=== PATIENT | male | born 1990 | race Caucasian/White ===

== ENCOUNTER 2022-04-26 10:10 | Outpatient (CLI) | payer OTHER ==
[2022-04-26 10:48] VITALS: BP 122/80
--- NOTE | 2022-04-26 10:48 | SLEEP CARE CONSULTATION ---
Information from patient questionnaire entered by Dhruv Mccarty. I have reviewed and concur with the information entered by Dhruv Mccarty. This document represents the service I personally performed and the decisions made by me, Rima Stewart ARNP. History of Present Illness Service Date and Time: 04/26/2022 1010 Reason for Visit: New patient Chief Complaint: reports: Unrefreshed sleep, Snoring, Observed pauses in breathing, Fatigue Date of Onset: several years Usual bedtime: 10-11pm Time it takes to fall asleep: 20-30min Snores at night: Yes Observed to quit breathing while asleep: Yes Sleeps alone due to snoring: Yes Number of times waking at night: 2 Reasons for waking at night: reports: Snoring, Gasping for air, Bathroom, Other (unknown) Toss, Turn, or Twitch while sleeping: Yes Recalls having dreams: No (not typically) Usually gets out of bed at: 745am Feels refreshed in the morning: No Morning headache: No Sleepy or fatigued during the day: Yes Ever fallen asleep while driving: No Takes day naps: Yes (1 times a week for about 1-2 hours) Dreams during day naps: No Prior sleep studies: No Additional HPI information: I had the pleasure of seeing SYMONE TINOCO today regarding the possibility of him having a sleep disorder. His current complaints are unrefreshed sleep, snoring, observed pauses in breathing and fatigue. He states he snores a lot according to his partner. His partner has also noted that he stops breathing in his sleep. 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 Patient is Single and lives in . Have you smoked in the past 12 months: No Cigarettes per day (20/pack): 3 Years of smokin Quit date: 5years ago Smoking Pack Years: 0.1 Alcohol use: Yes Alcohol amount and frequency: 2-3 drinks per month Caffeine use: Yes Caffeine amount and frequency: 3 cups coffee daily Family History Family history of sleep disordered breathing: Yes Family Hx Sleep Apnea: Father: Snoring, Sleep apnea - Untreated Allergies and Home Medications Known drug allergies: No Drug allergies reviewed: Yes (NKDA) Home medication list reviewed: Yes Allergy and home medication list: Medications: Lexapro 10 mg daily Review of Systems Weight gain over past 5 years: 50 Gastrointestinal: reports: heartburn (couple time a week) Neurological: reports: headaches (2-3 times a month). denies: head trauma Psychiatric: reports: anxiety Ear/Nose/Throat: reports: tonsillectomy, other (deviated septum) Immunologic: reports: sneezing, allergies to food or environment (seasonal) Physical Exam Vital signs obtained and entered by: DHRUV Lainez MA Blood Pressure: 122/80 (Left arm) Cuff size: long Heart Rate: 99 O2 Saturation: 97 Height: 5 ft 11 in Weight: 291 lb 6.4 oz Body Mass Index: 40.6 BMI Classification: Morbidly Obese Neck circumference: 18.75 (inches) Mouth and throat: narrow oropharynx Soft palate: long Hard palate: normal Uvula: normal Uvula visualization: 25% Mallampati Class III Tongue: enlarged in size with teeth bonilla on lateral edges Tonsils: absent bilaterally Neck: normal w/o lymphadenopathy or thyromegaly Heart: regular rate and rhythm Lungs: clear bilaterally Impression and Plan 1. Suspected Obstructive Sleep Apnea-Hypopnea Syndrome, as suggested by a history of loud and irregular snoring, observed cessation of breath while asleep, gasping or choking in sleep and unrefreshed sleep. Narrow oropharynx and obesity are common predisposing factors for obstructive sleep apnea-hypopnea syndrome. I recommend proceeding to polysomnography to confirm the diagnosis and to assess severity. If the patient has significant sleep disordered breathing, a manual CPAP titration study will also be performed to find the optimal treatment pressure. I informed the patient of what the sleep studies involve and after some discussion, obtained agreement to proceed. The pathophysiology of obstructive sleep apnea-hypopnea syndrome was discussed with the patient and health risks of cardiovascular and cerebrovascular disease if not treated. Risks of drowsy driving discussed in detail and patient advised to avoid long distance driving and to pack puller at the first sign of drowsiness. Patient agreed to plan. * Schedule polysomnography * Avoid long distance driving or driving when feeling sleepy. * Avoid alcohol, sedative and muscle relaxant around bedtime. * Attempt to lose weight. * Review instructions provided by trained office staff on how to prepare for the sleep study. * Return for follow-up after sleep study completed. Counseling Topics: Weight loss health impact Visit Type: In Office Time Spent with Patient (minutes): 30 Provider Statement: I spent 100% of the Face to Face Visit with the patient with greater than 50% spent counseling the patient and coordination of care.
== END 2022-04-26 10:11 | disposition home or self-care (01) ==
LOC: SC 10:10
PROVIDERS: ATTEND Nurse Practitioner Family
DX: R06.81 Apnea, not elsewhere classified (principal); G47.8 Other sleep disorders; R06.83 Snoring; E66.01 Morbid (severe) obesity due to excess calories; Z68.41 Body mass index [BMI] 40.0-44.9, adult
CPT/HCPCS: 99203; 99212

== ENCOUNTER 2022-05-25 15:28 | Outpatient (CLI) | payer OTHER | END 2022-05-25 15:29 | disposition home or self-care (01) | LOC: SC 15:28 | PROVIDERS: ATTEND Nurse Practitioner Family | DX: G47.33 Obstructive sleep apnea (adult) (pediatric) (principal); R09.02 Hypoxemia; R00.0 Tachycardia, unspecified | CPT/HCPCS: 95806 ==

== ENCOUNTER 2022-06-08 16:22 | Outpatient (CLI) | payer OTHER ==
--- NOTE | 2022-06-08 16:18 | SLEEP CARE CONSULTATION ---
Information from patient questionnaire entered by Lianne Mccarty. I have reviewed and concur with the information entered by Lianne Mccarty. This document represents the service I personally performed and the decisions made by , Rima Stewart ARNP. History of Present Illness Service Date and Time: 06/08/2022 1600 Initial [place] Sleepiness Scale score: 4 (04/16/2022) Current [place] Sleepiness Scale score: 7 (06/08/22) Additional HPI information: SYMONE TINOCO returns via video telehealth visit for follow up and results of the recently performed home sleep study. I explained the pathophysiology behind obstructive sleep apnea. We then spent quite a bit of time discussing different treatment options. For mild obstructive sleep apnea, surgery and oral appliance are alternatives to nasal CPAP therapy but in moderate or severe cases, nasal CPAP is the most effective and reliable treatment. Because apnea is primarily in supine position, then positional management therapy could be effective. Methods discussed such as positioning with pillows to prevent supine sleep. I reviewed the impact of weight changes on sleep apnea and strongly recommended losing weight. After some discussion, the patient opted to go with the nasal CPAP therapy. Nasal autoCPAP set at 5-20 cmH20 will be ordered with rationale explained. A manual titration study will be ordered if unable to find optimal pressure with office adjustments. I explained how CPAP machine works and what to expect when using the machine. Using CPAP every night in order to get used to it was emphasized. Patient advised to put CPAP mask on before getting into bed so as not to fall asleep without CPAP. To assist acclimation to CPAP use, it could also be used for a short time during day while reading or watching TV. The patient was instructed to call the CPAP supplier to discuss any mechanical problem that may occur. If the mask given is uncomfortable or is difficult to keep on through the night even with adjustment, contact the CPAP supplier as many will replace with another mask style if notified before 30 days. If snoring or perceives is not getting enough air or too much air from the machine, notify this office. Patient counseled not drink alcohol less than 4 hours before bedtime as it can increase snoring and apnea. Patient was cautioned about risks of drowsy driving until sleepiness symptoms resolve. Patient denies drowsy driving. Sleep Study - Results Type of Sleep Study: Home sleep study (COMPLETED 05/25/2022) Prior sleep studies: No Polysomnography/Home Sleep Study results: Physician Impression: The quality of the study is good. The length of the study is adequate (> 240 minutes). Please also see the tabulated and graphic data. 1. Obstructive Sleep Apnea-Hypopnea (ICD-10 G47.33), very severe, with an AHI of 96.8/hr and valerie SaO2 of 60%. During the study, the patient had 949 apneas (949 obstructive, 0 central, 0 mixed) and 16 hypopneas. The longest episode lasted 65.0 seconds. The respiratory events occurred more frequently during supine sleep (supine AHI was 95.3 and non-supine, 107.00). 2. Hypoxemia (ICD-10 R09.02), severe, with the lowest oxygen saturation of 60 % and 408.2 minutes with SaO2 under 90%. Baseline oxygen saturation was normal (Average oxygen saturation was 85%). 3. Tachycardia, with maximum recorded heart rate of 129 beats per minute. Allergies and Home Medications Drug allergies reviewed: Yes (NKDA) Home medication list reviewed: Yes (no changes) Allergy and home medication list: Allergies No Known Drug Allergies Allergy (Verified 04/26/22 10:22) Review of Systems Review of systems same as previous: Yes (no changes) Physical Exam Vital signs obtained and entered by: VIA PHONE Height: 5 ft 11 in (PER PT) Weight: 290 lb (PER PT) Body Mass Index: 40.4 BMI Classification: Morbidly Obese Impression and Plan 1. Obstructive Sleep Apnea-Hypopnea Syndrome, very severe, with lowest oxygen saturation of 60%. Obviously this is the cause of the patients symptoms of unrefreshed sleep, and excessive daytime sleepiness. Positive pressure therapy could benefit anxiety. As mentioned above, the patient will be started on nasal autoCPAP therapy with pressure set at 5-20 cmH2O with urgent setup. Compliance guidelines also reviewed. A copy of compliance guidelines will be given for reference at check out. 2. Obesity, unspecified. Currently patients BMI is 40.4. He is making a goal of losing 60-70 lbs this year. Obesity increases the risk of apnea, CPAP pressure requirements and overall health risks especially cardiovascular and diabetes. Thus patient is advised to lose weight. * Nasal auto CPAP therapy, pressure at 5-20 cm H2O. * Attempt to lose weight. * Avoid alcohol consumption near bedtime. * Avoid supine sleep until using CPAP. * The patient is again cautioned about driving until sleepiness completely resolves. * Return one month after CPAP obtained. I will assess response to therapy and compliance at that time. Counseling Topics: Weight loss health impact Visit Type: Telehealth Video Video Type: Doximity Patient Location: Home Location of Provider: Office Patient agrees and consents to this telehealth visit type: Yes Patient agrees to have their insurance billed: Yes Time Spent with Patient (minutes): 21 Provider Statement: I spent 100% of the Telehealth Video Call with the patient with greater than 50% spent counseling the patient and coordination of care.
== END 2022-06-08 16:23 | disposition home or self-care (01) ==
LOC: SC 16:22
PROVIDERS: ATTEND Nurse Practitioner Family
DX: G47.33 Obstructive sleep apnea (adult) (pediatric) (principal); E66.01 Morbid (severe) obesity due to excess calories; Z68.41 Body mass index [BMI] 40.0-44.9, adult

== ENCOUNTER 2022-08-10 16:00 | Outpatient (CLI) | payer OTHER ==
--- NOTE | 2022-08-10 16:07 | SLEEP CARE CONSULTATION ---
Information from patient questionnaire entered by Lianne Mccarty. I have reviewed and concur with the information entered by Lianne Mccarty. This document represents the service I personally performed and the decisions made by me, Rima Stewart ARNP. History of Present Illness Service Date and Time: 08/10/2022 1600 Previous diagnosis: Very Severe, Obstructive Sleep Apnea-Hypopnea Syndrome AHI: 96.8 (in 2021) Reason for follow up: first compliance Equipment type: CPAP (RESMED Airsense 11) Equipment obtained from: [employer] ([employer]) Mask style: Full face Mask brand: Resmed (Airfit F20) Backup mask available: No (will keep old mask when replaced) Last cushion change: 1 month Prior sleep studies: Yes Type of Sleep Study: Home sleep study (COMPLETED 05/25/2022) HPI additional information: SYMONE TINOCO was diagnosed to have very severe, AHI 96.8, obstructive sleep apnea-hypopnea syndrome and returns via video telehealth visit today for CPAP therapy first compliance follow-up. Sleep Study - Results Type of Sleep Study: Home sleep study (COMPLETED 05/25/2022) Prior sleep studies: No CPAP Compliance Data - Data Reviewed with Patient Average duration of nightly device use: 6 HRS 31 MIN Compliance rate %: 87 (07/10/22-08/08/22; 30/ days used) Current pressure setting (cmH2O): 5-20 (median 11.7, avg 15.7, max 17.7) Average residual AHI: 3.6 Central apnea: 0.1 Obstructive apnea: 2.6 Hypopnea: 0.8 Average large leak: 1.6 lpm Subjective Patient concerns: reports: air blowing in eyes (just adjust mask and resolves), dry mouth, nose, throat (not often, may not have put enough water into chamber). denies: aerophagia, mask discomfort, mask leak noise, condensation in mask/hose, nasal congestion, epistaxis Observed to snore while using device: No Current pressure setting perceived as: comfortable On therapy, patient: reports: sleeping better, awakening more refreshed, being more awake and alert during the day, more rested overall. denies: drowsiness while driving Initial Ava Sleepiness Scale score: 4 (04/16/2022) Current Ava Sleepiness Scale score: 5 (08/10/22) Allergies and Home Medications Drug allergies reviewed: Yes (NKDA) Home medication list reviewed: Yes (Lexapro 10 mg) Review of Systems Review of systems same as previous: Yes Physical Exam Vital signs obtained and entered by: VIA PHONE LIANNE Lainez MA Height: 5 ft 11 in (PER PT) Weight: 290 lb (per pt) Body Mass Index: 40.4 BMI Classification: Morbidly Obese Impression and Plan 1. Obstructive Sleep Apnea-Hypopnea Syndrome, very severe, with good treatment compliance and good apnea control. On CPAP therapy, the patient has better sleep quality and is more rested overall. Patient has significant improvement of their sleep apnea and are satisfied with current CPAP therapy. Patient states some air leaking into his eyes but he just needs to adjust his mask cushion and this resolves quickly. He has got occasional dry mouth but thinks this is related to when he forgets to put enough water in the water reservoir. He is happy with results and feels the pressures have been comfortable. The patients pressure will be changed to autoCPAP 12-18 cmH20 to reflect pressures being used. Patient advised to contact me if pressure change is uncomfortable so that it can be adjusted. Goals for apnea control discussed. Patient's apnea severity and rationale for treatment to reduce apnea, improve sleep quality and reduce ca rdiovascular and cerebrovascular events was reviewed. I also reviewed the benefit of consistent device use of CPAP for anxiety. 2. Obesity, unspecified. Currently patients BMI is 40.4. Obesity increases the risk of apnea, CPAP pressure requirements and overall health risks especially cardiovascular and diabetes. Thus patient is advised to lose weight. * Change auto CPAP pressure to 12-18 cmH2O * Notify me if snoring with mask or feeling that the pressure is too much or too little * Attempt to lose weight * Call this office if any problems using CPAP * Return for follow up in 1-2 months, or sooner if concerns arise Counseling Topics: Spare mask, Weight loss health impact Visit Type: Telehealth Video Video Type: Doximity Patient Location: Home Location of Provider: Office Patient agrees and consents to this telehealth visit type: Yes Patient agrees to have their insurance billed: Yes Time Spent with Patient (minutes): 12 Provider Statement: I spent 100% of the Telehealth Video Call with the patient with greater than 50% spent counseling the patient and coordination of care.
== END 2022-08-10 16:01 | disposition home or self-care (01) ==
LOC: SC 16:00
PROVIDERS: ATTEND Nurse Practitioner Family
DX: G47.33 Obstructive sleep apnea (adult) (pediatric) (principal); E66.01 Morbid (severe) obesity due to excess calories; Z68.41 Body mass index [BMI] 40.0-44.9, adult

== ENCOUNTER 2022-10-05 15:29 | Outpatient (CLI) | payer OTHER ==
--- NOTE | 2022-10-05 15:31 | SLEEP CARE CONSULTATION ---
Information from patient questionnaire entered by Dhruv Mccarty. I have reviewed and concur with the information entered by Dhruv Mccarty. This document represents the service I personally performed and the decisions made by me, Rima Stewart ARNP. History of Present Illness Service Date and Time: 10/05/2022 1520 Previous diagnosis: Very Severe, Obstructive Sleep Apnea-Hypopnea Syndrome AHI: 96.8 (in 2021) Reason for follow up: one month (F/U) Equipment type: CPAP (RESMED Airsense 11, s/u 06/2022) Equipment obtained from: [employer] ([employer]) Mask style: Full face Mask brand: Resmed (Airfit F20) Backup mask available: Yes (other mask) Last cushion change: 2 days ago Prior sleep studies: No Type of Sleep Study: Home sleep study (COMPLETED 05/25/2022) HPI additional information: SYMONE TINOCO was diagnosed to have very severe, AHI 96.8, obstructive sleep apnea-hypopnea syndrome and returns via video telehealth visit today for CPAP therapy one month follow-up. Sleep Study - Results Type of Sleep Study: Home sleep study (COMPLETED 05/25/2022) Prior sleep studies: No CPAP Compliance Data - Data Reviewed with Patient Average duration of nightly device use: 7 HRS 15 MIN Compliance rate %: 90 (09/02/22-09/2722; days used) Current pressure setting (cmH2O): 12-18 Average residual AHI: 3.1 Central apnea: 0.4 Obstructive apnea: 2.1 Hypopnea: 0.6 Average large leak: 2.6 lpm Subjective Patient concerns: reports: mask discomfort (sometimes). denies: aerophagia, air blowing in eyes, mask leak noise, condensation in mask/hose, nasal congestion, dry mouth, nose, throat, epistaxis Observed to snore while using device: No Current pressure setting perceived as: comfortable On therapy, patient: reports: sleeping better, awakening more refreshed, being more awake and alert during the day, more rested overall. denies: drowsiness while driving Initial [place] Sleepiness Scale score: 4 (04/16/2022) Current [place] Sleepiness Scale score: 2 (10/05/22) Allergies and Home Medications Known drug allergies: No Drug allergies reviewed: Yes Home medication list reviewed: Yes (no changes) Allergy and home medication list: Allergies No Known Drug Allergies Allergy (Verified 10/04/22 17:16) Review of Systems Review of systems same as previous: Yes (no changes) Physical Exam Vital signs obtained and entered by: DHRUV Lainez MA Height: 5 ft 11 in (PER PT) Weight: 282 lb (PER PT) Weight change since last visit: 8 lb loss Body Mass Index: 39.3 BMI Classification: Obese Impression and Plan 1. Obstructive Sleep Apnea-Hypopnea Syndrome, very severe, with good treatment compliance and good apnea control. On CPAP therapy, the patient has better sleep quality and is more rested overall. Patient has significant improvement of his sleep apnea and is comfortable with current CPAP settings. He denies any problems or concerns. He occasionally does feel that the mask is uncomfortable but feels the benefits outweigh this discomfort. I will follow-up with him in about 3 months. Patient's apnea severity and rationale for treatment to reduce apnea, improve sleep quality and reduce cardiovascular and cerebrovascular events was reviewed. I also reviewed the benefit of consistent device use of CPAP for anxiety. 2. Obesity, unspecified. Currently patients BMI is 39.3. He has had an 8 pound loss. Obesity increases the risk of apnea, CPAP pressure requirements and overall health risks especially cardiovascular and diabetes. Thus patient is advised to lose weight. * Continue auto CPAP pressure at 12-18 cmH2O * Notify me if snoring with mask or feeling that the pressure is too much or too little * Attempt to lose weight * Call this office if any problems using CPAP * Return for follow up in 3 months, or sooner if concerns arise Counseling Topics: Spare mask, Weight loss health impact Visit Type: Telehealth Video Video Type: DoximRemark Patient Location: Home Location of Provider: Office Patient agrees and consents to this telehealth visit type: Yes Patient agrees to have their insurance billed: Yes Time Spent with Patient (minutes): 15 Provider Statement: I spent 100% of the Telehealth Video Call with the patient with greater than 50% spent counseling the patient and coordination of care.
== END 2022-10-05 15:30 | disposition home or self-care (01) ==
LOC: SC 15:29
PROVIDERS: ATTEND Nurse Practitioner Family
DX: G47.33 Obstructive sleep apnea (adult) (pediatric) (principal); E66.9 Obesity, unspecified; Z68.39 Body mass index [BMI] 39.0-39.9, adult